=== PATIENT | male | born 1995 ===

== ENCOUNTER 2017-11-15 11:37 | Emergency (ER) | payer SELFPAY ==
[~2017-11-15] VITALS: Ht 177.8 cm; Wt 64.0 kg
[2017-11-15 12:02] VITALS: BP 134/79
[2017-11-15] MEDS ORDERED: ALBUTEROL/IPRATROPIUM 2.5MG/0.5MG, 3 ML NPPB SCH (12:30)
[2017-11-15] MEDS ORDERED: ALBUTEROL/IPRATROPIUM 2.5MG/0.5MG, 3 ML ONE (12:35)
== END 2017-11-15 13:00 | disposition home or self-care (01) ==
LOC: ED 12:54
DX: J45.31 Mild persistent asthma with (acute) exacerbation (principal)
CPT/HCPCS: 71046; 94640; 99284; J7512

== ENCOUNTER 2017-12-05 22:04 | Emergency (ER) | payer SELFPAY ==
[~2017-12-05] VITALS: Ht 177.8 cm; Wt 59.2 kg
[2017-12-05 22:07] VITALS: BP 124/80
[2017-12-05 22:39] LABS: MICROSCOPIC AUTO
[2017-12-05] MEDS ORDERED: AZITHROMYCIN 500 MG TABLET ONE (22:40)
[2017-12-05] MEDS ORDERED: CEFTRIAXONE 250 MG ONE (22:40)
[2017-12-05] MEDS ORDERED: LIDOCAINE-MPF 1%, 5ML ONE (22:40)
[2017-12-05 22:41] LABS: CULTURE INDICATED? YES
[2017-12-05] MEDS ORDERED: CEFTRIAXONE 250 MG IM ONE (23:00)
[2017-12-05] MEDS ORDERED: AZITHROMYCIN 500 MG TABLET PO ONE (23:00)
== END 2017-12-05 23:32 | disposition home or self-care (01) ==
LOC: ED 23:26
DX: N30.01 Acute cystitis with hematuria (principal); J45.909 Unspecified asthma, uncomplicated; Z20.2 Contact with and (suspected) exposure to infections with a predominantly sexual mode of transmission
CPT/HCPCS: 81001; 87086; 87491; 87591; 96372; 99284; J0696